=== PATIENT | female | born 1955 | race African-American/Black ===

== ENCOUNTER 2020-07-25 16:01 | Observation (INO) ==
[2020-07-25] MEDS ORDERED: LACTATED RINGERS 1,000 ML IV ONE (17:05)
[2020-07-25 17:18] LABS: Basophils % 0.2 % (0.0-0.8); Hematocrit 26.3 VOL% (35.7-47.0); Hemoglobin 8.1 GM/DL (12.0-16.0); Immature Granulocytes % 0.3 %; Immature Granulocytes Absolute 0.04 #; Lymphocytes # 2.8 10*3/uL (1.4-4.0); Lymphocytes % 20.5 % (21.3-54.2); Mean Corpuscular HGB Conc 30.8 GM/DL (32-36); Mean Corpuscular Volume 88.3 FL (87-102); Mean Platelet Volume 9.3 FL (9.6-12.0); Monocytes % 7.4 % (1.7-12.7); Neutrophils % 71.6 % (38.7-73.9); Platelet Count 336 T/CUMM (130-400); Red Blood Count 2.98 MC/CUMM (3.8-5.5); Red Cell Distribution Width 13.6 % (9.3-17.3); White Blood Count 13.7 T/CUMM (4-12)
[2020-07-25 17:25] LABS: INR 1.1; PT Patient Result 11.4 SECS (9.8-11.9)
[2020-07-25 17:28] LABS: Albumin 3.5 G/DL (3.4-5.0); Bilirubin,Total 0.5 MG/DL (0.2-1.0); Calcium 8.9 MG/DL (8.5-10.1); Osmolality,Calculated 277.7 MOS/KG (273-304); Potassium 4.2 MMOL/L (3.5-5.1)
[2020-07-25] MEDS ORDERED: PANTOPRAZOLE 40 MG VIAL IV STA (17:33)
[2020-07-25] MEDS ORDERED: SODIUM CHLORIDE 0.9% 1,000 ML IV STA (18:25)
[2020-07-25] MEDS ORDERED: PIPERACILLIN/TAZOBACTAM 3,375 MG in SODIUM CHLORIDE 0.9% 100 ML IV STA (18:26)
[2020-07-25] MEDS ORDERED: GLUCAGON 1 MG VIAL IM PRN ×2 (19:19→19:52)
[2020-07-25] MEDS ORDERED: ONDANSETRON 4 MG/2 ML VIAL IV PRN ×2 (19:19→19:52)
[2020-07-25] MEDS ORDERED: MORPHINE 4 MG/1 ML VIAL IV PRN ×2 (19:19→19:52)
[2020-07-25] MEDS ORDERED: DEXTROSE 50% 25 GM/50 ML VIAL IV PRN ×2 (19:19→19:52)
[2020-07-25] MEDS ORDERED: ENOXAPARIN 40 MG/0.4 ML SYRINGE SUBCUT SCH (19:30)
[2020-07-25] MEDS ORDERED: SODIUM CHLORIDE 0.9% 1,000 ML IV SCH ×2 (19:30→20:00)
[2020-07-25] MEDS ORDERED: PIPERACILLIN/TAZOBACTAM 3,375 MG VIAL IV ONE (19:34)
[2020-07-25] MEDS ORDERED: SODIUM CHLORIDE 0.9% 100 ML IV ONE (19:34)
[2020-07-25] MEDS ORDERED: ACETAMINOPHEN 325 MG TABLET PO PRN (19:52)
[2020-07-25] MEDS ORDERED: SODIUM CHLORIDE 0.9% 1,000 ML IV PRN (19:56)
[2020-07-25] MEDS ORDERED: OXYMETAZOLINE 0.05% NASAL SPRAY 15 ML BOTTLE BOTH NARES PRN (20:02)
[2020-07-25] MEDS ORDERED: LATANOPROST 0.005% OPH SOLN 2.5 ML BOTTLE BOTH EYES SCH (21:00)
[2020-07-25] MEDS: GABAPENTIN 400 MG CAPSULE PO SCH (22:10)
[2020-07-25] MEDS: METOPROLOL TARTRATE 25 MG TABLET PO SCH (22:10)
[2020-07-26 03:06] LABS: Barbiturates Screen,Urine Negative (Negative); Benzodiazepines Screen,Urine Negative (Negative); Cannabinoid Screen,Urine Positive (Negative); Opiate Screen,Urine Positive (Negative); Phencyclidine Screen,Urine Negative (Negative)
[2020-07-26 04:15] LABS: Basophils # 0.1 10*3/uL (0.0-0.2); Basophils % 0.4 % (0.0-0.8); Hematocrit 24.5 VOL% (35.7-47.0); Hemoglobin 7.7 GM/DL (12.0-16.0); Immature Granulocytes % 0.2 %; Immature Granulocytes Absolute 0.03 #; Lymphocytes # 4.1 10*3/uL (1.4-4.0); Lymphocytes % 34.2 % (21.3-54.2); Mean Corpuscular HGB Conc 31.4 GM/DL (32-36); Mean Corpuscular Volume 88.4 FL (87-102); Mean Platelet Volume 9.3 FL (9.6-12.0); Monocytes % 8.5 % (1.7-12.7); Neutrophils % 56.7 % (38.7-73.9); Platelet Count 224 T/CUMM (130-400); Red Blood Count 2.77 MC/CUMM (3.8-5.5); Red Cell Distribution Width 13.8 % (9.3-17.3)
[2020-07-26 04:29] LABS: Albumin 2.7 G/DL (3.4-5.0); Bilirubin,Total 0.8 MG/DL (0.2-1.0); Calcium 7.7 MG/DL (8.5-10.1); Osmolality,Calculated 282.1 MOS/KG (273-304); Potassium 3.6 MMOL/L (3.5-5.1); Risk Ratio 2.84; Total Protein 5.5 G/DL (6.4-8.3); VLDL CHOLESTEROL 26.2 MG/DL
[2020-07-26 04:55] LABS: Band Neutrophils 1 % (0-10); Lymphocytes 24 % (20-55); Segmented Neutrophils 67 % (50-85); Total Cells Counted 100
[2020-07-26 04:56] LABS: Hypochromasia 1+; Platelet Estimate Normal
[2020-07-26] MEDS: GABAPENTIN 400 MG CAPSULE PO SCH (08:34)
[2020-07-26] MEDS: METOPROLOL TARTRATE 25 MG TABLET PO SCH (08:34)
[2020-07-26] MEDS ORDERED: DULoxetine 30 MG CAPSULE PO SCH (09:00)
[2020-07-26] MEDS ORDERED: ATORVASTATIN 20 MG TABLET PO SCH (09:00)
[2020-07-26] MEDS ORDERED: PANTOPRAZOLE 40 MG TABLET PO SCH ×2 (09:00)
[2020-07-26] MEDS ORDERED: NICOTINE 21 MG/24 HR PATCH TRANSDERM SCH (09:00)
[2020-07-26 12:38] LABS: Hematocrit 30.7 VOL% (35.7-47.0)
[2020-07-26 12:44] LABS: Hemoglobin 9.9 GM/DL (12.0-16.0)
[2020-07-26 14:49] VITALS: BP 123/54
== END 2020-07-26 14:29 | disposition home or self-care (01) ==
LOC: N.ED 16:01 → N.EDINP 19:51 → SUATTDRO 19:51 → INTOOBSV 19:51 → N.EDINP 07-26 14:29
PROVIDERS: ADMIT Internal Medicine; ATTEND Internal Medicine